=== PATIENT | female | born 1945 | race Caucasian/White ===

== ENCOUNTER → 2017-03-23 | Day surgery (SDC) | payer MEDICARE, BC ==
[~2017-03-23] MED LIST: ASPIRIN81 M2 PO; BIOIDENTICAL HORM PO; CRANBERRY500 MG PO; ESTROGEN/TESTOSTERON VAG; HAIR-SKIN-NAIL1 EACH PO; MAGNESIUM400 M1 PO; MULTIPLE VITAM1 EAC1 PO; PROMETRIUM PO; TURMERIC500 M1 PO
--- NOTE | ~2017-03-23 | OR ---
Unit #: [id number] #: [id number] Patient: WEST MELTON [id number] [address] [address] [id number] O MR#: [id number] NAME: WEST MELTON ROOM: Date of Procedure: 03/23/2017 Admission Date: 03/23/2017 Surgeon: Jesse Gustafson M.D. : 1945 Attending Physician: Jesse Gustafson M.D. Primary Care Physician: Primary Care Physician No OPERATIVE REPORT PREOPERATIVE DIAGNOSIS Colorectal cancer screening. PROCEDURES PERFORMED Colonoscopy and polypectomy. POSTOPERATIVE DIAGNOSES 1. The patient had a single sessile polyp in the mid descending colon. This was about 8 mm in size. It was removed using snare polypectomy. 2. Mild sigmoid and descending colon diverticulosis. 3. Medium-sized internal hemorrhoids. There was one hemorrhoid that was larger than the other two. In view of the fact the patient notices intermittent hematochezia, this single hemorrhoid was treated using internal hemorrhoidal band ligation. RECOMMENDATIONS 1. Follow up the results of polyp histology. 2. Consider repeat colonoscopy in 5 years. 3. The patient was advised to avoid straining of the stool for the next couple of days and was given prescription for hydrocodone and acetaminophen 16 tablets 5/325 and advised to use them in case of any pain, and Dulcolax in case of any constipation. SEDATION USED MAC. DESCRIPTION OF PROCEDURE Following detailed explanation of the potential risks and complications of a colonoscopy, namely perforation, bleeding, and complications related to sedation, the patient was brought to GI lab and laid in the left lateral decubitus position. A digital rectal examination was performed, which was normal. Lubricated tip of the Olympus video colonoscope was inserted through the anus and advanced under direct vision. The scope was advanced past rectosigmoid into descending colon. Scant small diverticula were noted in this area. The scope tip was then navigated all the way up to cecum with visualization of the ileocecal valve and the appendiceal orifice. Preparation was excellent with good visualization and photodocumentation was obtained. Last few inches of the terminal ileum were also visualized after intubation of the ileocecal valve and appeared normal. Successive segments of the colonic mucosa were examined upon withdrawal. A single sessile polyp was noted in the mid descending colon. This was about 8 mm in size. It was removed using snare polypectomy. The Unit #: [id number] #: [id number] Patient: WEST MELTON polyp was retrieved and sent for histology. No additional polyps were noted. Other than the scant diverticula, the patient also noted to have medium-sized internal hemorrhoids. The scope was then withdrawn. A rapid shooter band ligator assembly was mounted on the scope tip. The patient was reintubated. In the retroflexed position, one of the larger hemorrhoids was treated using rubber band ligation. Excellent hemostasis was achieved and photodocumentation was obtained. The scope was then withdrawn and the patient returned to the recovery area. Dictated by... Dina Banda/mia TD: 03/23/2017 16:46 JOB #: [id number] OPERATIVE REPORT Page 1 of 1 X Jesse Gustafson MD X PROCEDURE OPERATIVE NOTE
== END | disposition home or self-care (01) ==
LOC: COPS 09:32
DX: Z12.11 Encounter for screening for malignant neoplasm of colon (principal); D12.4 Benign neoplasm of descending colon; K57.30 Diverticulosis of large intestine without perforation or abscess without bleeding; K64.8 Other hemorrhoids; K21.9 Gastro-esophageal reflux disease without esophagitis; M19.90 Unspecified osteoarthritis, unspecified site; Z87.442 Personal history of urinary calculi; Z79.82 Long term (current) use of aspirin; Z79.899 Other long term (current) drug therapy; Z98.51 Tubal ligation status
CPT/HCPCS: 88305